=== PATIENT | male | born 1985 | race Caucasian/White ===

== ENCOUNTER 2022-11-22 07:13 | Emergency (ER) | payer OTHER ==
[2022-11-22 07:20] VITALS: BP 125/83; PULSE 66; RESP 20; TEMP 100; BMI 24.2
[2022-11-22] MEDS ORDERED: ONDANSETRON *ODT* 4 MG TABLET SL ONE (07:24)
[2022-11-22] MEDS ORDERED: ONDANSETRON *ODT* 4 MG TABLET ONE (07:27)
[2022-11-22] MEDS ORDERED: ACETAMINOPHEN 500 MG TABLET (FP) PO ONE (07:29)
[2022-11-22] MEDS ORDERED: ACETAMINOPHEN 500 MG TABLET (FP) ONE (07:30)
== END 2022-11-22 08:00 | disposition home or self-care (01) ==
LOC: FER 07:13
DX: R11.2 Nausea with vomiting, unspecified (principal); R50.9 Fever, unspecified
CPT/HCPCS: 0241U-QW; 99283-25; Q0162